=== PATIENT | female | born 1985 | race Caucasian/White ===

== ENCOUNTER 2018-10-25 12:22 | Emergency (ER) | payer MEDICAID ==
[~2018-10-25] VITALS: Ht 177.8 cm; Wt 86.4 kg
[2018-10-25 12:51] VITALS: BP 102/79
[2018-10-25] MEDS ORDERED: oxyCODONE IR 5mg (immed. release) tablet PO ONE (13:40)
[2018-10-25] MEDS ORDERED: OXYC-658 PO (13:43)
== END 2018-10-25 14:21 | disposition home or self-care (01) ==
LOC: ER 12:22
DX: S86.812A Strain of other muscle(s) and tendon(s) at lower leg level, left leg, initial encounter (principal); M25.461 Effusion, right knee; F12.10 Cannabis abuse, uncomplicated; F17.200 Nicotine dependence, unspecified, uncomplicated; Z88.6 Allergy status to analgesic agent; Z88.8 Allergy status to other drugs, medicaments and biological substances; W00.0XXA Fall on same level due to ice and snow, initial encounter; Y93.01 Activity, walking, marching and hiking; Y92.89 Other specified places as the place of occurrence of the external cause; Y99.8 Other external cause status
CPT/HCPCS: 29505; 73564; 99283; 99284

== ENCOUNTER 2018-11-04 11:34 | Outpatient (CLI) | payer MEDICAID ==
[2018-11-04 11:33] VITALS: BP 125/96
[~2018-11-04 11:34] MED LIST: OXYC-658 PO
== END 2018-11-04 12:15 | disposition home or self-care (01) ==
LOC: ORTHO 11:34
PROVIDERS: ATTEND Nurse Practitioner Family
DX: S83.412A Sprain of medial collateral ligament of left knee, initial encounter (principal); F12.10 Cannabis abuse, uncomplicated; F17.200 Nicotine dependence, unspecified, uncomplicated; Z88.6 Allergy status to analgesic agent; Z88.8 Allergy status to other drugs, medicaments and biological substances; W00.0XXA Fall on same level due to ice and snow, initial encounter; Y93.01 Activity, walking, marching and hiking; Y92.89 Other specified places as the place of occurrence of the external cause; Y99.8 Other external cause status
CPT/HCPCS: 99213

== ENCOUNTER 2020-10-02 15:20 | Emergency (ER) | payer MEDICAID ==
[~2020-10-02] VITALS: Ht 180.3 cm; Wt 93.2 kg
--- NOTE | 2020-10-02 15:33 | NUR ---
IN ROOM WITH TRAM GROSS. 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 PATIENT IS HANDCUFFED BEHIND BACK.
[2020-10-02] MEDS ORDERED: diazepam 5mg tablet PO ONE (15:45)
[2020-10-02 16:04] VITALS: BP 155/70
[2020-10-02 16:07] LABS: CLARITY,URINE CLEAR (Clear); COLOR,URINE YELLOW (Yellow); GLUCOSE, URINE NEGATIVE (Neg); KETONES,URINE NEGATIVE (Neg); LEUKOCYTE ESTERASE ,URINE NEGATIVE (Neg); NITRITES, URINE NEGATIVE (Neg); OCCULT BLOOD,URINE NEGATIVE (Neg); PROTEIN,URINE NEGATIVE (Neg); UROBILINOGEN,URINE 0.2 E.U/dL (0.2-1.0)
[2020-10-02 16:08] LABS: URINE HCG NEGATIVE (NEG)
[2020-10-02 16:10] LABS: UA COLLECTION TYPE OTHER
== END 2020-10-02 16:35 ==
LOC: ER 15:21
DX: S20.419A Abrasion of unspecified back wall of thorax, initial encounter (principal); M54.2 Cervicalgia; F12.90 Cannabis use, unspecified, uncomplicated; Z72.89 Other problems related to lifestyle; Z88.8 Allergy status to other drugs, medicaments and biological substances; Z88.6 Allergy status to analgesic agent; X58.XXXA Exposure to other specified factors, initial encounter; Y93.89 Activity, other specified; Y92.89 Other specified places as the place of occurrence of the external cause; Y99.8 Other external cause status
CPT/HCPCS: 81003; 81025; 99283